=== PATIENT | male | born 1945 | race American Indian/Alaskan Native ===

== ENCOUNTER 2016-11-01 13:23 | Outpatient (CLI) | payer MEDICARE, OTHER ==
[2016-11-01 14:18] LABS: Blood Urea Nitrogen 17 mg/dL (9-20)
[2016-11-01] MEDS ORDERED: NACL ONE (14:37)
--- NOTE | 2016-11-02 09:58 | Cat Scan Report ---
CT ANGIO LOWER EXTREMITY RIGHT: HISTORY: Popliteal artery stenosis. TECHNIQUE: Helical CT following IV contrast. Sagittal and coronal reformatted images. 3-dimensional volume rendering technique. Rotational MIP images. NASCET criteria was utilized. COMPARISON: None. FINDINGS: Imaging was obtained from the mid right superficial femoral artery to just above the ankle. The visualized portions of the mid and distal right superficial femoral artery demonstrate [id number] partially calcified plaques but less than 30% stenosis. There is an approximate 6-7 cm segment of the right popliteal artery which is occluded. Collateral vessels reconstitute flow in the distal right popliteal artery. The anterior tibial artery, posterior tibial artery and peroneal artery are identified and appear to be patent with less than 30% stenosis. 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 Collaterals vessels appear to reconstitute flow distally.
== END 2016-11-01 13:24 | disposition home or self-care (01) ==
LOC: CT 13:23
PROVIDERS: ATTEND Internal Medicine
DX: I70.201 Unspecified atherosclerosis of native arteries of extremities, right leg (principal); I74.8 Embolism and thrombosis of other arteries
CPT/HCPCS: 36415; 73706; 82565; 84520; Q9967